=== PATIENT | male | born 1950 | race Caucasian/White ===

== ENCOUNTER → 2017-02-25 | Outpatient (CLI) | payer OTHER | LOC: FIMAGING 12:30 | PROVIDERS: ATTEND Internal Medicine | DX: M25.571 Pain in right ankle and joints of right foot (principal) ==

== ENCOUNTER 2017-07-27 10:20 | Emergency (ER) | payer OTHER ==
--- NOTE | 2017-07-27 10:29 | EDPHY ---
H & P Time Seen by Provider: 07/27/17 10:27 HPI/ROS: CHIEF COMPLAINT: Rash and shortness of breath HISTORY OF PRESENT ILLNESS: 67-year-old man presents with rash starting evening. He had some heartburn and took a single Zantac and developed an itchy red rash which he describes as like hives on his upper chest. He felt pretty stable yesterday and then today he feels like the rash is spread to his torso and his legs. He feels mildly short of breath like he has to take a deeper breath every now and then but no wheezing. Rashes severe and very itchy and not painful. Not associated with fever or chills or blisters. He does notice a little bit of a cold sore in his mouth especially on the inside of his left lip and just under his upper lip. REVIEW OF SYSTEMS: Eye: no change in vision or eye pain or eye discharge or photophobia ENT: no sore throat or angioedema, no throat tongue or lip swelling, no trouble speaking or swallowing Cardiac: no chest pain or syncope Pulmonary: Not coughing, no hemoptysis Abdomen: no vomiting, diarrhea, abdominal pain. No abdominal cramping Musculoskeletal: no back pain Skin: HPI Neuro: Today he developed a little bit of an intermittent sharp headache behind his eyes which comes and goes, not thunderclap in onset or worst of life. Constitutional: no fever or recent flu-like illness : no urinary symptoms A comprehensive 10 point review of systems is otherwise negative aside from elements mentioned in the history of present illness. PAST MEDICAL HISTORY: History and physical dated 10/25/2015 personally reviewed includes hypertension, hyperlipidemia, peripheral vascular disease, cervical fusion in October of 2015. 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 Social history: Here with his General Appearance: Alert and conversant, cooperative. Looks generally well. Eyes: No scleral icterus. No conjunctival injection. ENT, Mouth: Normal mucous membranes. No angioedema. He has a cold sore on the inside of his left lip and on the inside of his upper lip, it looks like a shallow ulcer but no desquamation present. Respiratory: Normal respiratory effort, breath sounds equal, lungs are clear to auscultation. No wheezing auscultated. Cardiovascular: Regular rate and rhythm. Gastrointestinal: Abdomen is soft and non tender. Neurological: Alert and oriented x3. Normally conversant. Face symmetric, normal movement and sensation in all extremities. Skin: Diffuse urticaria on both arms and the neck as well as his trunk and legs above the knees. Slightly raised. Not vesicular. Not purpuric or petechial. I cannot slough any skin with pressure. Musculoskeletal: No peripheral edema and no joint swelling. Psychiatric: Not agitated. Emergency Department course/MDM: Patient presents with likely acute allergic reaction. He went to urgent care and apparently was diaphoretic and tachycardic and was sent here for further evaluation. I do not think he has evidence of angioedema on examination. Unlikely to be ACS or pneumonia or pulmonary embolism or anemia. I think his headache is unlikely to be intracranial mass or bleed or subarachnoid or CLERICAL ASSISTANT infection. Law-Ton syndrome is considered in the differential because of the intraoral lesions. No blistering seen on his skin currently. Epinephrine 0.1 mg IM, Benadryl 50 mg IV, Solu-Medrol 125 mg IV. 1120: Feels better, much less itchy. Systolic blood pressure 134. Labs reviewed. 1249: Clinically stable, no angioedema, no blisters. Treat with short course oral steroids, 48 hour primary care follow-up. He tells me he is going on a business trip on Saturday but I told him I do not recommend that he go unless he is completely symptom free at that time. Warned to return for pain or blisters or worsening of symptoms. Ambulatory without difficulty, full sentences at discharge. Smoking Status: Former smoker Constitutional: Initial Vital Signs Temperature (C) 36.6 C 07/27/17 10:32 Heart Rate 74 07/27/17 10:32 Respiratory Rate 18 07/27/17 10:32 Blood Pressure 160/95 H 07/27/17 10:32 O2 Sat (%) 94 07/27/17 10:32 O2 Delivery Mode Room Air Allergies/Adverse Reactions: No Known Allergies Allergy (Verified 10/25/15 17:34) Home Medications: Medication Instructions Recorded Atenolol [Tenormin 50 mg (*)] 50 mg PO DAILY 10/03/15 Atorvastatin Calcium [Lipitor 10 10 mg PO DAILY 10/03/15 mg (*)] Lisinopril/Hctz 20/12.5MG 1 ea PO DAILY 10/03/15 [Zestoretic/Prinzide 20/12.5MG (*)] Hydrocodone/Acetaminophen [Lortab 1 each PO QID PRN #30 tablet 10/22/15 5-325 mg Tablet] Methocarbamol [Robaxin 750 mg (*)] 750 mg PO TID PRN #30 tab 10/22/15 Clopidogrel Bisulfate [Plavix (*)] 75 mg PO DAILY #30 tab 10/28/15 predniSONE [prednisone 20mg (RX)] 60 mg PO DAILY 3 Days tab 07/27/17 Medical Decision Making - Diagnostics EKG Interpretation: 12-lead EKG interpreted by me; official reading is in trace master. My interpretation is sinus rhythm rate 83 no ischemic changes. Normal intervals. Differential Diagnosis: Differential considered including but not limited to anaphylaxis from medication , anaphylaxis from food, pulmonary embolism or ACS, Law-Ton syndrome. Consult/Admit Bed Type: [place] [id number] - Data Points Laboratory Results: Laboratory Results 07/27/17 10:32 07/27/17 10:32 07/27/17 07/27/17 10:32 10:32 WBC 6.58 10^3/uL 10^3/uL (3.80-9.50) RBC 5.14 10^6/uL 10^6/uL (4.40-6.38) Hgb 16.6 g/dL g/dL (13.7-17.5) Hct 48.3 % % (40.0-51.0) MCV 94.0 fL fL (81.5-99.8) MCH 32.3 pg pg (27.9-34.1) MCHC 34.4 g/dL g/dL (32.4-36.7) RDW 13.0 % % (11.5-15.2) Plt Count 184 10^3/uL 10^3/uL (150-400) MPV 10.6 fL fL (8.7-11.7) Neut % (Auto) 72.2 % % (39.3-74.2) Lymph % (Auto) 17.8 % % (15.0-45.0) Brown % (Auto) 5.9 % % (4.5-13.0) Eos % (Auto) 3.5 % % (0.6-7.6) Baso % (Auto) 0.3 % % (0.3-1.7) Nucleat RBC Rel Count 0.0 % % (0.0-0.2) Absolute Neuts (auto) 4.75 10^3/uL 10^3/uL (1.70-6.50) Absolute Lymphs (auto) 1.17 10^3/uL 10^3/uL (1.00-3.00) Absolute Monos (auto) 0.39 10^3/uL 10^3/uL (0.30-0.80) Absolute Eos (auto) 0.23 10^3/uL 10^3/uL (0.03-0.40) Absolute Basos (auto) 0.02 10^3/uL 10^3/uL (0.02-0.10) Absolute Nucleated RBC 0.00 10^3/uL 10^3/uL (0-0.01) Immature Gran % 0.3 % % (0.0-1.1) Immature Gran # 0.02 10^3/uL 10^3/uL (0.00-0.10) Sodium 134 mEq/L mEq/L (134-144) Potassium 4.6 mEq/L mEq/L (3.5-5.2) Chloride 100 mEq/L mEq/L (97-110) Carbon Dioxide 21 mEq/l L mEq/l (22-31) Anion Gap 13 mEq/L mEq/L (8-16) BUN 14 mg/dL mg/dL (7-23) Creatinine 1.2 mg/dL mg/dL (0.7-1.3) Estimated GFR > 60 Glucose 156 mg/dL H mg/dL (70-100) Calcium 9.3 mg/dL mg/dL (8.5-10.4) Medications Given: Discontinued Medications Diphenhydramine HCl (Benadryl Injection) 50 mg IVP EDNOW ONE Stop: 07/27/17 10:46 Last Admin: 07/27/17 10:53 Dose: 50 mg Epinephrine HCl (Epinephrine) 0.1 mg IM EDNOW ONE Stop: 07/27/17 10:50 Last Admin: 07/27/17 10:59 Dose: 0.1 mg Sodium Chloride (Ns) 1,000 mls @ 0 mls/hr IV ONCE ONE; Wide Open PRN Reason: Protocol Stop: 07/27/17 10:46 Last Admin: 07/27/17 10:52 Dose: 1,000 mls Methylprednisolone Sodium Succinate (Solu-Medrol) 125 mg IVP EDNOW ONE Stop: 07/27/17 10:46 Last Admin: 07/27/17 10:53 Dose: 125 mg Departure - Departure Disposition: Home, Routine, Self-Care Clinical Impression: Urticaria Condition: Good Instructions: Urticaria (ED) Additional Instructions: Return immediately for trouble breathing, fever, blisters on your skin, if the rash becomes more painful than itchy. Oral Benadryl 50 mg 3 times a day or every 8 hours for the next 48 hours. No Zantac now or ever; it's possible that you are allergic. Referrals: José Miguel Hernandez MD [Primary Care Provider] - 07/29/17 Prescriptions: predniSONE [prednisone 20mg (RX)] 60 mg PO DAILY 3 Days tab
[2017-07-27] MEDS ORDERED: NS 1,000 ML IV ONE (10:45)
[2017-07-27] MEDS ORDERED: methylPREDNISolone SOD SUCC 125 MG/2 ML VIAL IVP ONE (10:45)
--- NOTE | 2017-07-27 10:53 | CPEKG ---
Heart Rate: 83 RR Interval: 723 P-R Interval: 148 QRSD Interval: 90 QT Interval: 368 QTC Interval: 433 P [place]: 29 QRS [place]: 30 T Wave [place]: 43 EKG Severity - NORMAL ECG - EKG Impression: SINUS RHYTHM Electronically Signed By: Olayinka Roth 27-Jul-2017 10:54:02
[2017-07-27 11:04] LABS: % IMMATURE GRANULYOCYTES 0.3 % (0.0-1.1); ABSOLUTE IMMATURE GRANULOCYTES 0.02 10^3/uL (0.00-0.10); ADD DIFF? NO; ADD MORPH? NO; ADD SCAN? NO; ATYPICAL LYMPHOCYTE FLAG 0 (0-99); FRAGMENT RBC FLAG 0 (0-99); HEMATOCRIT 48.3 % (40.0-51.0); HEMOGLOBIN 16.6 g/dL (13.7-17.5); LEFT SHIFT FLG 0 (0-99); LIPEMIA HEMOLYSIS FLAG 90 (0-99); MEAN CELL HEMOGLOBIN 32.3 pg (27.9-34.1); MEAN CELL HEMOGLOBIN CONCENTR. 34.4 g/dL (32.4-36.7); MEAN PLATELET VOLUME 10.6 fL (8.7-11.7); PLATELET CLUMPS FLAG 0 (0-99); PLATELET COUNT 184 10^3/uL (150-400); RED BLOOD CELL COUNT 5.14 10^6/uL (4.40-6.38)
[2017-07-27 11:08] VITALS: RESP 18
[2017-07-27 11:10] LABS: ANION GAP 13 mEq/L (8-16); CALCIUM 9.3 mg/dL (8.5-10.4); CARBON DIOXIDE 21 mEq/l (22-31); CHLORIDE 100 mEq/L (97-110); CREATININE 1.2 mg/dL (0.7-1.3); GLOMERULAR FILTRATION RATE > 60; GLUCOSE 156 mg/dL (70-100); POTASSIUM 4.6 mEq/L (3.5-5.2); SODIUM 134 mEq/L (134-144)
[2017-07-27 12:59] VITALS: BP 113/57; PULSE 84; TEMP 98.2; O2SAT 93
== END 2017-07-27 12:59 | disposition home or self-care (01) ==
LOC: CED 10:20
DX: L50.9 Urticaria, unspecified (principal); E86.9 Volume depletion, unspecified; I10 Essential (primary) hypertension; Z87.891 Personal history of nicotine dependence
CPT/HCPCS: 80048-PO; 85025-PO; 96374; J0171; J1200